=== PATIENT | male | born 1965 | race Two or more races ===

== ENCOUNTER 2021-01-26 11:37 | Emergency (ER) | payer OTHER ==
[~2021-01-26] VITALS: Ht 180.3 cm; Wt 104.4 kg
[2021-01-26 11:37] VITALS: BP 120/82
--- NOTE | 2021-01-26 12:59 | RAD ---
Study: XR ELBOW COMPLETE_RIGHT 3+ VIEWS Indication: Injury. Comparison: None. Findings: Suspected small elbow joint effusion. No displaced fracture. Alignment is within normal limits. Arthr osis is mild with small osteophytes. Chronic mineralization at the medial humeral epicondyle. Tiny en thesophyte at the triceps insertion. Tiny focus of increased density projecting anterior to the dista l humerus on one of the lateral views and an additional punctate focus of increased density projectin g between the volar margin of the radius and capitellum on the additional lateral view. Impression: 1. Small elbow joint effusion which could either be degenerative, related to soft tissue injury or se condary to an occult fracture which would most likely involve the radial head if present. Follow-up c ould be performed in 2-3 weeks to further evaluate if there is ongoing pain. 2. Mild arthrosis with small osteophytes. Chronic mineralization at the medial humeral epicondyle. Co rrelate for any symptoms of active medial epicondylitis. Electronically signed by: LAUREN SOLIS MD (01/26/2021 12:56 PM) [facility]
[2021-01-26] MEDS ORDERED: HYDROcodone/APAP 5/325MG 1 TAB TABLET PO ONE (13:00)
[2021-01-26] MEDS ORDERED: HYDR-2155 PO (13:30)
--- NOTE | 2021-01-26 13:32 | PHYS DOC ---
Past History Past Medical History: No Pertinent History (MIKE BATRES APRN) Past Surgical History: Appendectomy (MIKE BATRES APRN) Alcohol Use: Occasionally Drug Use: None (MIKE BATRES APRN) General Adult EDM: Chief Complaint: MECHANICAL FALL HPI: HPI: Patient is a 55-year-old male who presents with right elbow pain after a fall. Patient states he was at work going down the stairs when he tripped and fell directly on his right elbow. Sensation and range of motion intact. Denies take anything for pain prior to arrival. Patient denies hitting his head or loss of consciousness. Denies medical history. (MIKE BATRES APRN) Review of Systems: Review of Systems: ROS At least 10 ROS systems have been reviewed and are negative except as documented in the HPI. General: Negative except as outlined in HPI above. Skin: Negative except as outlined in HPI above. HEENT: Negative except as outlined in HPI above. Neck: Negative except as outlined in HPI above. Respiratory: Negative except as outlined in HPI above.. Cardiovascular: Negative except as outlined in HPI above. Abdomen: Negative except as outlined in HPI above. : Negative except as outlined in HPI above. Back/MSK: Negative except as outlined in HPI above. Neuro: Negative except as outlined in HPI above. Psych: Negative except as outlined in HPI above. (MIKE BATRES APRN) Current Medications: Current Meds: Current Medications Medications (Trade) Dose Ordered Sig/Vaelrie Start Time Stop Time Status Last Admin Dose Admin Acetaminophen/ Hydrocodone Bitart (Lortab 5/325) 1 tab 1X ONCE 01/26/21 13:00 01/26/21 13:04 DC 01/26/21 13:15 1 TAB (MIKE BATRES APRN) Allergies: Allergies: Allergies Coded Allergies Type Severity Reaction Last Updated Verified No Known Drug Allergies 03/09/15 No (MIKE BATRES APRN) Physical Exam: PE: Constitutional: Well developed, well nourished, no acute distress, non-toxic appearance. [] HENT: Normocephalic, atraumatic, bilateral external ears normal, oropharynx moist, no oral exudates, nose normal. [] Eyes: PERRLA, EOMI, conjunctiva normal, no discharge. [] Neck: Normal range of motion, no tenderness, supple, no stridor. [] Cardiovascular:Heart rate regular rhythm, no murmur [] Lungs & Thorax: Bilateral breath sounds clear to auscultation [] Abdomen: Bowel sounds normal, soft, no tenderness, no masses, no pulsatile masses. [] Skin: Warm, dry, no erythema, no rash. [] Back: No tenderness, no CVA tenderness. [] Extremities: Right elbow tenderness, no cyanosis, no clubbing, ROM intact, no edema. [] Neurologic: Alert and oriented X 3, normal motor function, normal sensory function, no focal deficits noted. [] Psychologic: Affect normal, judgement normal, mood normal. [] (MIKE BATRES APRN) Current Patient Data: Vital Signs: Vital Signs Date Time Temp Pulse Resp B/P (MAP) Pulse Ox O2 Delivery O2 Flow Rate FiO2 01/26/21 11:37 59 16 120/82 (95) 99 Room Air (MIKE BATRES APRN) EKG: EKG: [] (MIKE BATRES APRN) Radiology/Procedures: Radiology/Procedures: [] (MIKE BATRES APRN) Heart Score: C/O Chest Pain: No Risk Factors: Risk Factors: DM, Current or recent (<one month) smoker, HTN, HLP, family history of CAD, obesity. Risk Scores: Score 0 - 3: 2.5% MACE over next 6 weeks - Discharge Home Score 4 - 6: 20.3% MACE over next 6 weeks - Admit for Clinical Observation Score 7 - 10: 72.7% MACE over next 6 weeks - Early Invasive Strategies (MIKE BATRES APRN) Course & Med Decision Making: Course & Med Decision Making Pertinent Labs and Imaging studies reviewed. (See chart for details) [] 55-year-old male presents with right elbow pain after a fall at work. X-ray of right elbow ordered to rule out fracture. Elbow x-ray is unremarkable. Discussed results with patient. Educated on RICE. Arm sling provided. Advised patient if pain continues to make a follow-up appointment with his PCP in 5 to 7 days for possible reimaging. Ibuprofen and Tylenol at home for discomfort. Patient sent home with pain medication until he is able to follow-up. Patient verbalizes discharge instructions and is hemodynamically stable upon disposition. (MIKE BATRES APRN) Dragon Disclaimer: Dragon Disclaimer: This electronic medical record was generated, in whole or in part, using a voice recognition dictation system. (MIKE BATRES APRN) Attending Co-Sign The patient was seen and interviewed as well as examined at the bedside. The chart was reviewed. The case was discussed. Agree with the plan of care. (ARETHA CHI DO) Departure Departure: Impression: Primary Impression: Effusion of elbow joint, right Disposition: HOME / SELF CARE / HOMELESS Condition: STABLE Referrals: CT BOBBY MD (PCP) Patient Instructions: Elbow Effusion-Brief Additional Instructions: You were seen in the emergency room after a fall onto your right elbow. X-rays showed a elbow effusion. I am providing you with a arm sling to help with immobilization. Please follow-up with Ortho in 5 to 7 days for further management. I am also sending you home with pain medication. You can take ibuprofen for breakthrough pain. Try and rest, use ice to the area. Return to the emergency room if you have worsening symptoms or concerns. EMERGENCY DEPARTMENT GENERAL DISCHARGE INSTRUCTIONS Thank you for coming to [facility] (ED) today and trusting us with you care. We trust that you had a positivie experience in our Emergency Department. If you wish to speak to the department management, you may call the director at [phone]. YOUR FOLLOW UP INSTRUCTIONS ARE FOLLOWS: 1. Do you have a private Doctor? If you do not have a private doctor, please ask for a resource list of physicians or clinics that may be able to assist you with follow up care. 2. The Emergency Physician has interpreted your x-rays. The X-Ray specialist will also review them. If there is a change in the findings, you will be notified in 48 hours when at all possible. 3. A lab test or culture has been done, your results will be reviewed and you will be notified if you need a change in treatment. ADDITIONAL INSTRUCTIONS AND INFORMATION: 1. Your care today has been supervised by a physician who is specially trained in emergency care. Many problems require more than one evaluation for a complete diagnosis and treatment. We recommend that you schedule your follow up appointment as recommended to ensure complete treatment of you illness or injury. If you are unable to obtain follow up care and continue to have a problem, or if your condition worsens, we recommend that you return to the ED. 2. We are not able to safely determine your condition over the phone nor are we able to give sound medical advice over the phone. For these safety reasons, if you call for medical advice we will ask you to come to the ED for further evaluation. 3. If you have any questions regarding these discharge instructions please call the ED at [phone]. SAFETY INFORMATION: In the interest of safety, wellness, and injury prevention; we encourage you to wear your sealbelt, if you smoke; quite smoking, and we encourage family to use a protective helmet for bicycling and other sporting events that present an increased risk for head injury. IF YOUR SYMPTOMS WORSEN OR NEW SYMPTOMS DEVELOP, OR YOU HAVE CONCERNS ABOUT YOUR CONDITION; OR IF YOUR CONDITION WORSENS WHILE YOU ARE WAITING FOR YOUR FOLLOW UP APPOINTMENT; EITHER CONTACT YOUR PRIMARY CARE DOCTOR, THE PHYSICIAN WHOSE NAME AND NUMBER YOU WERE GIVEN, OR RETURN TO THE ED IMMEDIATELY. Scripts Hydrocodone Bit/Acetaminophen (HYDROCODONE-APAP 5-325 ) 1 Each Tablet 1-2 TAB PO PRN Q6HRS PRN for PAIN for 3 Days, #12 TAB 0 Refills Prov: MIKE BATRES APRN 01/26/21 MIKE BATRES APRN Jan 26, 2021 13:32 ARETHA CHI DO Jan 27, 2021 16:02
== END 2021-01-26 13:50 | disposition home or self-care (01) ==
LOC: ER 11:37
DX: M25.421 Effusion, right elbow (principal); W01.0XXA Fall on same level from slipping, tripping and stumbling without subsequent striking against object, initial encounter; Y93.89 Activity, other specified; Y92.89 Other specified places as the place of occurrence of the external cause; Y99.8 Other external cause status
CPT/HCPCS: 73080; 99283